=== PATIENT | female | born 1995 | race Caucasian/White ===

== ENCOUNTER 2020-03-25 19:35 | Emergency (ER) | payer SELFPAY ==
[~2020-03-25] VITALS: Ht 157.5 cm; Wt 53.6 kg
[2020-03-25] MEDS ORDERED: AMOX500C PO (19:53)
--- NOTE | 2020-03-25 19:54 | PHYS DOC ---
Past Medical History Past Medical History: Bipolar Additional Past Medical Histor: adhd, Past Surgical History: No Surgical History Smoking Status: Never Smoker Alcohol Use: Rarely Drug Use: None General Adult EDM: Chief Complaint: SORE THROAT HPI: HPI: Patient is a 24 year old female who presents with sore throat for the last 4 days. She states she had fever and some nausea. She states she still eating and drinking appropriately but is painful. She rates her pain 8 out of 10. Review of Systems: Review of Systems: HENT: Denies nasal congestion. +sore throat. [] Heart Score: Risk Factors: Risk Factors: DM, Current or recent (<one month) smoker, HTN, HLP, family history of CAD, obesity. Risk Scores: Score 0 - 3: 2.5% MACE over next 6 weeks - Discharge Home Score 4 - 6: 20.3% MACE over next 6 weeks - Admit for Clinical Observation Score 7 - 10: 72.7% MACE over next 6 weeks - Early Invasive Strategies Allergies: Allergies: Allergies Coded Allergies Type Severity Reaction Last Updated Verified diphenhydramine Allergy Intermediate NAUSEA AND VOMITING 07/16/14 Yes Physical Exam: PE: Constitutional: Well developed, well nourished, no acute distress, non-toxic appearance. [] HENT: Normocephalic, atraumatic, bilateral external ears normal, oropharynx moist, no oral exudates, nose normal. Bilateral tonsils swollen 1+ with exudates. [] Eyes: PERRLA, EOMI, conjunctiva normal, no discharge. [] Neck: Normal range of motion, no tenderness, supple, no stridor. [] Cardiovascular:Heart rate regular rhythm, no murmur [] Lungs & Thorax: Bilateral breath sounds clear to auscultation [] Abdomen: Bowel sounds normal, soft, no tenderness, no masses, no pulsatile masses. [] Skin: Warm, dry, no erythema, no rash. [] Back: No tenderness, no CVA tenderness. [] Extremities: No tenderness, no cyanosis, no clubbing, ROM intact, no edema. [] Neurologic: Alert and oriented X 3, normal motor function, normal sensory function, no focal deficits noted. [] Psychologic: Affect normal, judgement normal, mood normal. [] EKG: EKG: [] Radiology/Procedures: Radiology/Procedures: [] Course & Med Decision Making: Course & Med Decision Making Pertinent Labs and Imaging studies reviewed. (See chart for details) Alert and oriented. Speaks in full clear sentences. No trismus. Uvula midline. Bilateral tonsils are reddened, swollen 1+ with exudates. [] Dragon Disclaimer: Dragon Disclaimer: This electronic medical record was generated, in whole or in part, using a voice recognition dictation system. Departure Departure Impression: Primary Impression: Sore throat Disposition: HOME, SELF-CARE Condition: STABLE Referrals: NO PCP (PCP) Patient Instructions: Strep Throat Additional Instructions: Follow up with primary care provider. Take Tylenol or use Chloraseptic spray to help with pain. Take medication with food until it is complete. Scripts Azithromycin (AZITHROMYCIN TABLET) 250 Mg Tablet 1 PKG PO UD for 5 Days, #6 TAB 0 Refills 2 the first day followed by 1 for days 2-5 Prov: STEFANIE MURILLO APRN 03/25/20 Justicifation of Admission Dx: Justifications for Admission: Justification of Admission Dx: N/A STEFANIE MURILLO APRN Mar 25, 2020 19:54
[2020-03-25] MEDS ORDERED: DEXAMETHASONE 4 MG TABLET PO ONE (20:00)
[2020-03-25] MEDS ORDERED: AZIT250T6 PO (20:26)
[2020-03-25 20:30] VITALS: BP 114/86
== END 2020-03-25 20:33 | disposition home or self-care (01) ==
LOC: ER 19:35
DX: J02.9 Acute pharyngitis, unspecified (principal); R50.9 Fever, unspecified; R11.0 Nausea; F31.9 Bipolar disorder, unspecified; F90.9 Attention-deficit hyperactivity disorder, unspecified type; Z88.5 Allergy status to narcotic agent
CPT/HCPCS: 87070; 87880; 99283; J8540